=== PATIENT | male | born 1975 | race Caucasian/White ===

== ENCOUNTER 2020-05-12 10:32 | Outpatient (CLI) | payer OTHER, SELFPAY ==
--- NOTE | 2020-05-16 11:50 | P.NEURO_ITS ---
Neurology EEG Report General Information Date of Study: 05/12/20 TEST EEG DIAGNOSIS Parkinson's Disease CONDITION OF RECORDING Awake, drowsy and sleep EEG NUMBER [id number] CLINICAL HISTORY Patient reports, for about a year, he had noticed right arm and hand and sometimes right leg not responding/moving like should. EEG DESCRIPTION Basic resting occipital frequency consists of well defined 8-10hz per second alpha. During drowsiness low voltage beta activity is seen diffusely mixed with waxing and waning alpha activity. Bilateral symmetrical sleep activity is seen during sleep. Photic stimulation produced normal and symmetrical drive. N onparoxysmal. Nonfocal. Nonlaterlizing. Impression: No significant abnormalities noted.
== END 2020-05-12 10:33 | disposition home or self-care (01) ==
LOC: ANHNEURO 10:33
PROVIDERS: PCP Family Medicine; Visit Provider Psychiatry & Neurology Neurology
DX: G20 Parkinson's disease (principal)
CPT/HCPCS: 95816

== ENCOUNTER → 2020-05-12 12:03 | Outpatient (CLI) | payer OTHER, SELFPAY ==
--- NOTE | ~2020-05-12 | MR_ITS ---
EXAMINATION: MR brain/brain stem wo/w con DATE: 05/12/2020 14:40 INDICATION: Paresthesias of skin. TECHNIQUE: Magnetic resonance imaging (MRI) of the brain and brainstem was performed without and with 14 mL MultiHance intravenous contrast. Sequences included sagittal and axial T1-weighted FSE, axial diffusion-weighted FS EPI, axial T2*-weighted GRE, axial T2-weighted FLAIR Propeller, and axial T2-we ighted Propeller. Postcontrast sequences included axial and coronal T1-weighted FSE. Apparent diffusi on coefficient (ADC) maps were created. COMPARISON: None. FINDINGS: There are small old infarcts in right parietal lobe. There are scattered areas of nonspecif ic increased T2-weighted signal intensity in the cerebral white matter. There is no intracranial hemo rrhage, acute infarction, or abnormal intracranial mass lesion. The ventricles are normal in size. Th ere are mucous retention cysts in the maxillary sinuses. The orbits are normal. The mastoid air cells are normal. IMPRESSION: 1. 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 2. Mild nonspecific cerebral white matter disease, which likely represents chronic small vessel ische lambert disease. Reviewed, dictated and finalized at location A. IANCE ADJUSTER IMPRESSION: 1. 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 2. Mild nonspecific cerebral white matter disease, which likely represents cmm programmer abhijit small vessel ischemic disease.
--- NOTE | ~2020-05-12 | MR_ITS ---
EXAMINATION: MR cervical spine wo/w con DATE: 05/12/2020 14:39 INDICATION: Paresthesias of skin. TECHNIQUE: Magnetic resonance imaging (MRI) of the cervical spine was performed without and with 14 m L MultiHance intravenous contrast. Sequences included sagittal and axial T2-weighted FSE, sagittal ST IR FSE, and sagittal and axial T1-weighted FSE. Postcontrast sequences included sagittal and axial T1 -weighted FS FSE. COMPARISON: None FINDINGS: There is 4 degrees levocurvature of cervical spine. Vertebral body heights are normal. Inte rvertebral disc heights are normal. The spinal cord signal intensity is normal. The following disc le vels are specifically discussed: C2-C3: The disc does not extend beyond the endplate margin. There is no uncovertebral joint osteoarth ritis. There is no facet joint osteoarthritis. There is no neural foraminal stenosis. There is no miguelina tral canal stenosis. C3-C4: The disc does not extend beyond the endplate margin. There is mild left uncovertebral joint os teoarthritis. There is mild right facet joint osteoarthritis. There is mild left neural foraminal nic nosis. There is no central canal stenosis. C4-C5: The disc does not extend beyond the endplate margin. There is moderate left uncovertebral join t osteoarthritis. There is mild right facet joint osteoarthritis. There is mild left neural foraminal stenosis. There is no central canal stenosis. C5-C6: The disc is bulging. There is mild bilateral uncovertebral joint osteoarthritis. There is no f acet joint osteoarthritis. There is mild right neural foraminal stenosis. There is mild central canal stenosis. C6-C7: The disc does not extend beyond the endplate margin. There is no uncovertebral joint osteoarth ritis. There is no facet joint osteoarthritis. There is no neural foraminal stenosis. There is no miguelina tral canal stenosis. C7-T1: The disc does not extend beyond the endplate margin. There is no uncovertebral joint osteoarth ritis. There is no facet joint osteoarthritis. There is no neural foraminal stenosis. There is no miguelina tral canal stenosis. IMPRESSION: 1. Mild cervical spondylosis. Reviewed, dictated and finalized at location A. IFIED PHLEBOTOMIST
[2020-05-12 13:36] LABS: Estimated Glomerular Filt Rate > 60
== END ==
PROVIDERS: Visit Provider Psychiatry & Neurology Neurology
DX: M47.812 Spondylosis without myelopathy or radiculopathy, cervical region (principal); M48.02 Spinal stenosis, cervical region; Z86.73 Personal history of transient ischemic attack (TIA), and cerebral infarction without residual deficits
CPT/HCPCS: 70553; 72156; A9577

== ENCOUNTER 2020-07-19 09:09 | Outpatient (CLI) | payer OTHER, SELFPAY ==
--- NOTE | 2020-07-19 12:00 | NEURO_ITS ---
Impression: # Complains of slow movement on the right side with sfittness. # Normal nerve conduction study of lower extremities. # Normal needle/EMG exam; no myotonia or fasciculation. # Clinical correlation recommended.possibility of higher involvement likely. Nerve Conduction Studies Anti Sensory Summary Table Stim Site NR Peak (ms) P-T Amp (?V) Site1 Site2 Delta-P (ms) Dist (cm) Rocky (m/s) Left Sup Fibular Anti Sensory (Ant Lat Mall) 14 cm 3.3 13.1 14 cm Ant Lat Mall 3.3 16.0 48 Right Sup Fibular Anti Sensory (Ant Lat Mall) 14 cm 3.3 7.3 14 cm Ant Lat Mall 3.3 16.0 48 Left Sural Anti Sensory (Lat Mall) Calf 3.9 25.5 Calf Lat Mall 3.9 16.0 41 Right Sural Anti Sensory (Lat Mall) Calf 4.2 12.3 Calf Lat Mall 4.2 17.0 40 Motor Summary Table Stim Site NR Onset (ms) O-P Amp (mV) Site1 Site2 Delta-0 (ms) Dist (cm) Rocky (m/s) Left Peroneal Motor (Vastus Med) Ankle 5.0 1.8 Popit Ankle 8.3 39.0 47 Popit 13.3 2.6 Right Peroneal Motor (Vastus Med) Ankle 5.1 3.6 Popit Ankle 7.9 37.0 47 Popit 13.0 2.7 Left Tibial Motor (Abd Elmore Brev) Ankle 5.1 5.2 Knee Ankle 9.4 42.0 45 Knee 14.5 2.5 Right Tibial Motor (Abd Elmore Brev) Ankle 4.9 6.8 Knee Ankle 9.2 41.0 45 Knee 14.1 4.8 F Wave Studies NR F-Lat (ms) L-R F-Lat (ms) Left Peroneal (Mrkrs) (EDB) 50.67 1.05 Right Peroneal (Mrkrs) (EDB) 51.72 1.05 Left Tibial (Mrkrs) (Abd Hallucis) 52.19 0.07 Right Tibial (Mrkrs) (Abd Hallucis) 52.12 0.07 EMG Side Muscle Nerve Root Ins Act Fibs Amp Dur Recrt Comment Right AntTibialis Dp Br Fibular L4-5 Nml Nml Nml Nml Nml Right Gastroc Tibial S1-2 Nml Nml Nml Nml Nml Right Fibularis Long Sup Br Fibular L5-S1 Nml Nml Nml Nml Nml Right Flex Dig Long Tibial L5-S2 Nml Nml Nml Nml Nml Right Ext Dig Brev Dp Br Fibular L5, S1 Nml Nml Nml Nml Nml Left AntTibialis Dp Br Fibular L4-5 Nml Nml Nml Nml Nml Left Gastroc Tibial S1-2 Nml Nml Nml Nml Nml Left Fibularis Long Sup Br Fibular L5-S1 Nml Nml Nml Nml Nml Left Flex Dig Long Tibial L5-S2 Nml Nml Nml Nml Nml Left Ext Dig Brev Dp Br Fibular L5, S1 Nml Nml Nml Nml Nml MTDD
== END 2020-07-19 09:10 | disposition home or self-care (01) ==
PROVIDERS: PCP Family Medicine; Visit Provider Psychiatry & Neurology Neurology
DX: G62.9 Polyneuropathy, unspecified (principal)
CPT/HCPCS: 95886; 95910

== ENCOUNTER → 2020-07-21 08:34 | Outpatient (CLI) | payer OTHER, SELFPAY ==
--- NOTE | ~2020-07-21 | MR_ITS ---
EXAMINATION: MR shoulder RT wo con DATE: 07/21/2020 09:31 INDICATION: Right shoulder pain. TECHNIQUE: Magnetic resonance imaging (MRI) of the right shoulder was performed without intravenous c ontrast. Sequences included axial PD-weighted FS FSE, coronal oblique PD-weighted FS FSE and T2-weigh angel FS FSE, and sagittal oblique T2-weighted FS FSE and T1-weighted FSE. COMPARISON: None. FINDINGS: Coracoacromial arch: The acromion undersurface is curved in morphology (type II). Acromioclavicular joint is normal. There is mild subacromial/subdeltoid bursitis. Rotator cuff: There is severe supraspinatus tendinopathy and mild infraspinatus and teres minor tendinopathy. There is mild subscapularis tendinopathy. No tear. There is no asymmetric fatty atrophy of the rotator cuf f muscle bellies. Biceps tendon and glenoid labrum: Biceps tendon is in bicipital groove. Intra-articular biceps tendon is normal. The glenoid labrum is normal. Fluid: There is no glenohumeral joint effusion. Bones/cartilage: There is cartilage surface irregularity of humeral head and glenoid. IMPRESSION: 1. Severe rotator cuff tendinopathy. No tear. 2. Mild glenohumeral joint chondrosis. 3. Mild subacromial/subdeltoid bursitis. Reviewed, dictated and finalized at location A. O REPAIRER
== END ==
PROVIDERS: Visit Provider Psychiatry & Neurology Neurology
DX: R53.1 Weakness (principal); M75.51 Bursitis of right shoulder
CPT/HCPCS: 73221

== ENCOUNTER 2020-08-16 15:38 | Outpatient (CLI) | payer OTHER, SELFPAY ==
[2020-08-16 16:57] LABS: Basophils Percent Auto 0.6 % (0.2-1.2); Eosinophils Absolute Auto 0.1 K/mm3 (0-0.3); Eosinophils Percent Auto 2.2 % (0-4.4); Hematocrit 43.7 % (42.0-52.0); Hemoglobin 14.9 g/dL (14.0-18.0); Immature Granulocyte Absolute 0.02 K/mm3 (0.00-0.031); Immature Granulocyte Percent A 0.3 % (0-0.5); Lymphocytes Percent Auto 30.2 % (18.3-44.2); Mean Corpuscular HGB Conc 34.1 g/dl (32-36); Mean Corpuscular Hemoglobin 30.2 pg (26-34); Mean Corpuscular Volume 88.5 fl (80-100); Monocytes Absolute Auto 0.4 K/mm3 (0.1-0.6); Monocytes Percent Auto 5.6 % (2.6-8.5); Neutrophils Absolute Auto 3.9 K/mm3 (1.3-6.7); Neutrophils Percent Auto 61.1 % (45.5-73.1); Platelet Count Result 295 k/mm3 (150-375); Red Blood Count 4.94 M/mm3 (4.6-6.20); Red Cell Distribution Width 12.5 % (11.5-14.5); White Blood Count 6.3 K/mm3 (4.5-10.0)
[2020-08-16 17:00] LABS: Rheumatoid Factor < 8.6 IU/ML (<12)
[2020-08-16 17:02] LABS: CRP < 0.5 mg/dL (<1.0); Uric Acid 5.4 mg/dL (3.5-8.5)
[2020-08-16 17:30] LABS: Erythrocyte Sedimentation Rate 5 mm/hr (0-20)
== END 2020-08-16 15:39 | disposition home or self-care (01) ==
LOC: ANHLAB 15:39
PROVIDERS: PCP Family Medicine; Visit Provider Orthopaedic Surgery
DX: M17.0 Bilateral primary osteoarthritis of knee (principal); M06.9 Rheumatoid arthritis, unspecified
CPT/HCPCS: 36415; 84550; 85025; 85652; 86038; 86140; 86430

== ENCOUNTER 2020-09-20 16:45 | Outpatient (RCR) | payer OTHER, SELFPAY ==
--- NOTE | 2020-08-23 18:06 | PTOPEVAL ---
PHYSICAL THERAPY EVALUATION Thank you for referring Ronnie Driscoll to [facility].? The patient was evaluated for the dx of right RTC tendonitis. The patient is scheduled to be seen for therapy? 2 x/week for 4 weeks. Please review, sign, date and return this plan of care TOMMY. I agree with and certify that the following plan of care is medically necessary. Referring Physician Date Attending Provider: Titi Perez MD *PT Outpatient Evaluation Start: 08/23/20 07:26 Freq: Status: Active Protocol: Document 08/23/20 16:44 MLV (Rec: 08/23/20 17:50 MLV [email or web address]) Assessment Status Evaluation Evaluation Information Problem Diagnosis right RTC tendonitis Onset 1 year ago Cause no injury Additional Evaluation Detail Patient having pain at right shoulder about 1 year ago. The patient is also seeing a neurologist due to onset of possible Parkinsons at the same time. The patient a cortisone shot which gave some relief. The patient has pain with certain motions- especially reaching behind his back. 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 Patient denies left shoulder problems. Patient is right hand dominant. Subjective Information Patient has 3 kids but none Query Text:As Reported By Patient/ require being carried. The Family patient's goal is to be free of pain with reaching/lifting and sleeping. Diagnostic Tests X-Rays For This Problem Yes: normal Pain Assessment Timing of Pain Assessment Timing of Pain Assessment Assessment Pain Scale Pain Scale Used Numeric (1 - 10) Self Report Pain Assessment Right Shoulder(s) Reported Pain Level 0 Pain Frequency Acute Other Pain Description 3 with reach behind back Greatest Pain Intensity 6 Pain Aggravating Factors Lifting Other Pain Aggravating Factors reaching Pain Score Pain Score 0: Self Report Interventions Used Interventions Used By Clinicians Education Pain Relief Interventions Used By Inactivity/Rest,Position Patient Change Upper Extremity Range of Motion General Upper Extremity Range of Motion Reason Not Measured WFL/Left,WFL/Right Gross Upper Extr
--- NOTE | 2020-09-18 18:08 | PCPTNOTE ---
Billing charge error for documentation with treatment date 09/11/20 @ 16:35. Therapist charged 2units under functional education which document should reflect 2units under manual therapy with 25minutes of treatment under that unit.
--- NOTE | 2020-09-20 17:34 | PTOPEVAL ---
PHYSICAL THERAPY DISCHARGE Thank you for referring Ronnie Driscoll to [facility].? The patient has been seen for therapy?9 visits for the dx of right shoulder tendonitis. Goals are met. DC PT. Please review, sign, date and return this plan of care TOMMY. I agree with and certify the following plan of care. Referring Physician Date Admitting Provider: Attending Provider: Titi Perez MD Referring Provider: Titi Perez MD *PT Outpatient Discharge Start: 08/23/20 07:26 Freq: Status: Active Protocol: Document 09/20/20 16:51 MLV (Rec: 09/20/20 17:34 MLV [email or web address]) Assessment Status Discharge Evaluation Information Problem Diagnosis right RTC tendonitis Onset 1 year ago Cause no injury Additional Evaluation Detail Patient reports right shoulder pain and use of arm is much improved. The patient is compliant with HEP and plans to continue exercises on own at home. Patient is to see MD on 09/27 for a follow up. Pain Assessment Timing of Pain Assessment Timing of Pain Assessment Assessment Pain Scale Pain Scale Used Numeric (1 - 10) Self Report Pain Assessment Right Shoulder(s) Reported Pain Level 0 Pain Frequency Acute Other Pain Description reaching behind his back Greatest Pain Intensity 5 Pain Behaviors None Pain Score Pain Score 0: Self Report Upper Extremity Range of Motion General Upper Extremity Range of Motion Reason Not Measured WFL/Left,WFL/Right Gross Upper Extremity Range of Motion reach behind back to T7 on Comments left, and T7 on right arm Upper Extremity Muscle Strength Testing General Upper Extremity Strength Reason Not Measured WNL/Left,WNL/Right Gross Upper Extremity Strength Comments scapular strength improved to 3+/5 to 4-/5 Palpation Assessment Palpation Palpation decreased radha scapular winging PT Clinical Summary Mr. Driscoll has completed 9 visits for right shoulder pain, tightness, postural imbalance and goals have been met. The patient is I to continue with HEP and heat at home and has a follow up with the MD soon. DC PT at this time-no further skilled PT needs.
== END 2020-09-21 10:20 | disposition home or self-care (01) ==
LOC: ANHPT 16:45
PROVIDERS: PCP Family Medicine; Referring Provider Orthopaedic Surgery; Visit Provider Orthopaedic Surgery
DX: M75.41 Impingement syndrome of right shoulder (principal)
CPT/HCPCS: 97014; 97110; 97140; 97161; 97530; G0283

== ENCOUNTER 2020-09-27 16:29 | Outpatient (CLI) | payer OTHER, SELFPAY ==
--- NOTE | ~2020-09-27 | US_ITS ---
EXAMINATION: US venous doppler UE RT EXAM DATE: 09/27/2020 17:05 INDICATION: Right upper extremity swelling. TECHNIQUE: Multiple grayscale, color flow, Doppler sonographic images of the right upper extremity ve ins obtained by technologist. Compression was performed where able. There is no prior study for cathy ayala. FINDINGS: Right upper extremity: Jugular vein: ------------> Normal. Subclavian vein: --------> Normal. Axillary vein:------------> Normal. Brachial vein:-----------> Normal. Basilic vein: ------------> Normal. Cephalic vein: ----------> Normal. Radial vein: ------------> Normal. Ulnar vein: > Normal. IMPRESSION: No deep venous thrombosis of the right upper extremity. Reviewed, dictated and finalized at location A.
== END 2020-09-27 16:30 | disposition home or self-care (01) ==
PROVIDERS: PCP Family Medicine; Visit Provider Orthopaedic Surgery
DX: M79.89 Other specified soft tissue disorders (principal)
CPT/HCPCS: 93971

== ENCOUNTER 2023-12-31 15:16 | Outpatient (CLI) | payer BC, SELFPAY ==
[2023-12-31 15:35] LABS: Basophils Absolute Auto 0.1 K/mm3 (0.0-0.1); Basophils Percent Auto 0.8 % (0.2-1.2); Eosinophils Absolute Auto 0.2 K/mm3 (0-0.3); Eosinophils Percent Auto 2.9 % (0-4.4); Hematocrit 36.5 % (42.0-52.0); Hemoglobin 10.9 g/dL (14.0-18.0); Immature Granulocyte Absolute 0.01 K/mm3 (0.00-0.031); Immature Granulocyte Percent A 0.2 % (0-0.5); Lymphocytes Absolute Auto 1.86 K/mm3 (0.9-3.2); Lymphocytes Percent Auto 30.1 % (18.3-44.2); Mean Corpuscular HGB Conc 29.9 g/dl (32-36); Mean Corpuscular Hemoglobin 22.8 pg (26-34); Mean Corpuscular Volume 76.2 fl (80-100); Mean Platelet Volume 8.4 fl (7.4-10.4); Monocytes Absolute Auto 0.4 K/mm3 (0.1-0.6); Monocytes Percent Auto 6.6 % (2.6-8.5); Neutrophils Absolute Auto 3.7 K/mm3 (1.3-6.7); Neutrophils Percent Auto 59.4 % (45.5-73.1); Platelet Count Result 304 k/mm3 (150-375); Red Blood Count 4.79 M/mm3 (4.6-6.20); Red Cell Distribution Width 16.1 % (11.5-14.5); White Blood Count 6.2 K/mm3 (4.5-10.0)
[2023-12-31 15:40] LABS: Platelet Estimate Adequate (Adequate); Schistocytes None Seen
[2023-12-31 15:41] LABS: Anisocytosis 1+; Hypochromasia 1+; Microcytosis 1+ (NORMAL)
[2023-12-31 15:42] LABS: Ovalocytes 1+; Poikilocytosis 1+
[2023-12-31 16:38] LABS: Iron 27 ug/dL (49-181)
[2023-12-31 16:38] LABS: Alanine Aminotransferase 18 U/L (6-50); Albumin Level 4.9 g/dL (3.5-5.1); Alkaline Phosphatase 99 U/L (38-126); Anion Gap 10 mmol/L (4-12); Aspartate Amino Transferase 27 U/L (17-59); Bilirubin,Total 1.8 mg/dL (0.2-1.3); Blood Urea Nitrogen 16 mg/dL (9-20); Carbon Dioxide 26 mmol/L (22-30); Chloride 104 mmol/L (98-107); Estimated Glomerular Filt Rate > 60; Glucose 102 mg/dL (65-110); Lactate Dehydrogenase 213 U/L (120-246); Potassium 4.3 mmol/L (3.4-5.0); Sodium 140 mmol/L (137-145)
[2023-12-31 16:48] LABS: Percent Iron Saturation 6 % (20-50)
[2023-12-31 17:14] LABS: Ferritin 5.17 ng/mL (17.9-464)
[2023-12-31 17:44] LABS: Folic Acid 10.8 ng/mL (2.76->20)
[2024-01-04 04:19] LABS: Methylmalonic Acid 124 nmol/L (55-335)
[2024-01-05 12:24] LABS: Soluble Transferrin Receptor 2.77 mg/L (0.76-1.76)
== END 2023-12-31 15:17 | disposition home or self-care (01) ==
LOC: ANHLAB 15:20
PROVIDERS: Nurse Practitioner Family; PCP Family Medicine; Visit Provider Internal Medicine Hematology & Oncology
DX: D50.9 Iron deficiency anemia, unspecified (principal)
CPT/HCPCS: 36415; 80053; 82607; 82728; 82746; 83540; 83550; 83615; 83921; 84238; 85025

== ENCOUNTER 2024-06-03 21:13 | Observation (INO) | payer BC, SELFPAY ==
[2024-06-03] VITALS (7 sets, daily range): BP systolic 129–140; BP diastolic 81–91; PULSE 94–106; RESP 20–26; TEMP 36.8; O2SAT 94–98
--- NOTE | ~2024-06-03 | CT_ITS ---
EXAMINATION: CT abdomen pelvis w con DATE: 06/03/2024 22:18 INDICATION: Right lower quadrant tenderness, suprapubic pain. TECHNIQUE: Computed tomography (CT) of the abdomen and pelvis was performed with 100 CC Omnipaque 350 intravenous contrast. Automated exposure control and iterative reconstruction technique were employe d. Exam dose: 569.42 mGy-cm total exam DLP. COMPARISON: None. FINDINGS: There is mild bilateral dependent lower lobe atelectasis. The lungs are otherwise clear. Normal heart size. No pericardial or pleural effusion. The liver, spleen, pancreas, gallbladder, bile ducts and pancreatic duct are unremarkable. Normal morphology of the adrenal glands. No renal mass lesion or urinary tract calculus or hydroureteronephrosis. Small sliding hiatal hernia. There is a probably dilated abnormal appendix with evidence of perforation and surrounding inflammati on. The appendix measures up to 2.5 cm diameter. Mucocele should be considered. There is associated probable adynamic ileus with air-fluid levels in the small bowel. No bowel obstru ction is evident. No intraperitoneal free air is detected. Normal caliber of the abdominal aorta. No intraperitoneal or retroperitoneal or pelvic mass lesion or adenopathy. There is minimal free fluid in the right paracolic gutter in the region of the inferior tip of the right hepatic lobe. Bilateral fat-containing inguinal hernias, larger on the right. Fat-containing umbilical hernia. Included skeletal structures are unremarkable. IMPRESSION: Probably enlarged appendix measuring up to 2.5 cm diameter, with evidence of perforation ; appendiceal mucocele should be considered Probable associated mild adynamic ileus, with small bowel air-fluid levels Small sliding hiatal hernia Bilateral fat-containing inguinal hernias, right greater than left Fat-containing umbilical hernia. Reviewed, dictated and finalized at Location A. Reviewed, dictated and finalized at location A. E LOADER IMPRESSION: Probably enlarged appendix measuring up to 2.5 cm diameter, with e vidence of perforation; appendiceal mucocele should be considered Probable associated mild adynamic ileus, with small bowel air-fluid levels Small sliding hiatal hernia Bilateral fat-containing inguinal hernias, right greater than left Fat-containing umbilical hernia.
[2024-06-03 21:34] LABS: Basophils Percent Auto 0.4 % (0.2-1.2); Eosinophils Absolute Auto 0.1 K/mm3 (0-0.3); Eosinophils Percent Auto 0.9 % (0-4.4); Hematocrit 42.8 % (42.0-52.0); Hemoglobin 14.5 g/dL (14.0-18.0); Immature Granulocyte Absolute 0.01 K/mm3 (0.00-0.031); Immature Granulocyte Percent A 0.1 % (0-0.5); Lymphocytes Absolute Auto 1.01 K/mm3 (0.9-3.2); Lymphocytes Percent Auto 10.5 % (18.3-44.2); Mean Corpuscular HGB Conc 33.9 g/dl (32-36); Mean Corpuscular Hemoglobin 29.7 pg (26-34); Mean Corpuscular Volume 87.7 fl (80-100); Mean Platelet Volume 9.4 fl (7.4-10.4); Monocytes Absolute Auto 0.6 K/mm3 (0.1-0.6); Monocytes Percent Auto 5.9 % (2.6-8.5); Neutrophils Absolute Auto 7.9 K/mm3 (1.3-6.7); Neutrophils Percent Auto 82.2 % (45.5-73.1); Platelet Count Result 294 k/mm3 (150-375); Red Blood Count 4.88 M/mm3 (4.6-6.20); Red Cell Distribution Width 12.8 % (11.5-14.5); White Blood Count 9.7 K/mm3 (4.5-10.0)
--- NOTE | 2024-06-03 21:40 | ED.ABDPAIN ---
HPI - Abdominal Pain General Chief Complaint: Abdominal Pain Stated Complaint: bladder pain radiates to abdomen and left back Time Seen by Provider: 06/03/24 21:18 Source: patient Mode of arrival: ambulatory Limitations: no limitations History of Present Illness HPI narrative: This is a 49-year-old male who presents to the ED with chief complaint of lower abdominal pain x1 day. Reports it radiates on occasion to the left side. He has known history of Crohn's but has been in remission for quite some time. Reports that he has had hernias in the past but thinks his pain today may be more due to the bladder. Denies urinary symptoms. Endorses a little bit of nausea and vomiting but no diarrhea or or GI bleeding symptoms. Denies fevers, chills, chest pain, shortness of breath, back pain Related Data Home Medications Medication Instructions Recorded Confirmed cholecalciferol (vitamin D3) 125 5,000 unit PO DAILY 05/18/19 05/24/24 mcg (5,000 unit) capsule baclofen 10 mg tablet 10 mg PO QHS 06/03/23 05/24/24 bupropion HCl 100 mg tablet 100 mg PO BID 06/03/23 05/24/24 mirtazapine 15 mg tablet 15 mg PO DAILY 05/24/24 05/24/24 Allergies Allergy/AdvReac Type Severity Reaction Status Date / Time tramadol Allergy Unknown Jittery Verified 05/24/24 15:43 Review of Systems Review of Systems: All systems as dictated in HPI PENDING SALE TO [facility] Past Medical History Medical History Anxiety Crohn disease GERD (gastroesophageal reflux disease) History of endocarditis HTN (hypertension), benign PVCs (premature ventricular contractions) Surgical History Surgical History H/O inguinal hernia repair H/O mitral valve repair Family History Family History Grandparent Heart disease Social History Social History Smoking status: Never smoker Second hand tobacco smoke exposure: Yes Alcohol intake: current Alcohol use details: social drinker Substance use: never Substance use type: does not use Living arrangements: with family Occupation/Education: occupation 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 HEAD: Normocephalic, atraumatic. EYES: PERRLA and EOMI. ENT: Nares clear, no rhinorrhea or epistaxis. Mucous membranes moist. Oropharynx without tonsillar hypertrophy exudate or other lesions. NECK: Supple. No adenopathy or masses. CHEST: No respiratory distress. Clear to auscultation. No wheezes rales or rhonchi HEART: Regular rate and rhythm. No murmur heard. Normal peripheral pulses. ABDOMEN: Tenderness to the right lower quadrant and suprapubic abdomen. Soft, otherwise nontender, nondistended, normal active bowel sounds. MSK: Normal range of motion. No edema. SKIN: Warm, dry, no rash. NEURO: Alert and oriented x4. No focal deficits. PSYCH: Normal mood and affect. Course Vital Signs Vital signs: Vital Signs Temperature 98.2 F 06/03/24 21:18 Pulse Rate 106 H 06/03/24 21:18 Respiratory Rate 24 H 06/03/24 21:18 Blood Pressure 140/91 H 06/03/24 21:18 Pulse Oximetry 96 06/03/24 21:18 Oxygen Delivery Room Air 06/03/24 21:18 Temperature 98.2 F 06/03/24 21:18 Pulse Rate 95 06/03/24 22:31 Respiratory Rate 26 H 06/03/24 22:31 Blood Pressure 129/81 06/03/24 22:31 Pulse Oximetry 98 06/03/24 22:31 Oxygen Delivery Room Air 06/03/24 21:18 MDM - Abdominal Pain MDM Narrative Medical decision making narrative: This is a 49-year-old male who presents to the ED for chief complaint of abdominal pain. Vitals initially showing tachycardia, elevated blood pressure but otherwise no fever. Exam shows localized right lower quadrant tenderness. Lab work showing normal white count on CBC and normal hemoglobin. CMP remarkable for slightly elevated bilirubin of 2.3 but liver enzymes are normal. Urinalysis showing high specific gravity but no infection. Received a call from the stat read radiologist indicating that the patient likely has acute early perforated appendicitis. The read is showing a 2.5 cm dilated appendix with no abscess. Patient was started on Zosyn. Surgery was consulted and recommends admission to hospitalist. Dr. Leavitt (Hospitalist) has agreed to admit the patient. Lab Data 06/03/24 21:27 06/03/24 21:27 Labs: Lab Results 06/03/24 Range/Units 21:27 WBC 9.7 (4.5-10.0) K/mm3 RBC 4.88 (4.6-6.20) M/mm3 Hgb 14.5 D (14.0-18.0) g/dL Hct 42.8 (42.0-52.0) % MCV 87.7 (80-100) fl MCH 29.7 (26-34) pg MCHC 33.9 (32-36) g/dl RDW 12.8 (11.5-14.5) % Plt Count 294 (150-375) k/mm3 MPV 9.4 (7.4-10.4) fl Immature Gran % (Auto) 0.1 (0-0.5) % Neut % (Auto) 82.2 H (45.5-73.1) % Lymph % (Auto) 10.5 L (18.3-44.2) % [place] % (Auto) 5.9 (2.6-8.5) % Eos % (Auto) 0.9 (0-4.4) % Baso % (Auto) 0.4 (0.2-1.2) % Lymph # (Auto) 1.01 (0.9-3.2) K/mm3 [place] # (Auto) 0.6 (0.1-0.6) K/mm3 Eos # (Auto) 0.1 (0-0.3) K/mm3 Baso # (Auto) 0.0 (0.0-0.1) K/mm3 Abs Immat Gran (auto) 0.01 (0.00-0.031) K/mm3 Absolute Neuts (auto) 7.9 H (1.3-6.7) K/mm3 Absolute Nucleated RBC 0.000 (0.0-0.012) K/mm3 Nucleated RBC % 0.0 (0.0-0.2) % Sodium 140 (137-145) mmol/L Potassium 4.0 (3.4-5.0) mmol/L Chloride 103 (98-107) mmol/L Carbon Dioxide 29 (22-30) mmol/L Anion Gap 8 (4-12) mmol/L BUN 15 (9-20) mg/dL Creatinine 0.80 (0.7-1.3) mg/dL Estim Creat Clear Calc 92 ml/min Estimated GFR > 60 (59 - ) Glucose 127 H (65-110) mg/dL Calcium 9.0 (8.4-10.2) mg/dL Total Bilirubin 2.3 H (0.2-1.3) mg/dL AST 26 (17-59) U/L ALT 11 (6-50) U/L Alkaline Phosphatase 99 (38-126) U/L Total Protein 8.0 (6.3-8.2) g/dL Albumin 4.6 (3.5-5.1) g/dL Lipase 96 (23-300) U/L Urine Color Yellow (Yellow) Urine Appearance Clear (Clear) Urine pH 6.0 (5.0-9.0) Ur Specific [place] > 1.045 H (1.001-1.035) Urine Protein Negative (Negative) mg/dL Urine Glucose (UA) Negative (Negative) mg/dL Urine Ketones Negative (Negative) mg/dL Ur Blood (Man) Negative (Negative) Urine Nitrate Negative (Negative) Urine Bilirubin Negative (Negative) Urine Urobilinogen 0.2 (<2.0) mg/dL Leukocyte Esterase Rfl Negative (Negative) DHIRAJ/UL Discharge Plan Discharge Clinical Impression: Acute appendicitis Qualifiers: Appendicitis perforation presence: with perforation Appendicitis abscess presence: without abscess Patient Disposition: Still a Patient Condition: Stable Instructions: Antibiotic Form Prescriptions: No Action bupropion HCl 100 mg tablet 100 mg PO BID baclofen 10 mg tablet 10 mg PO QHS mirtazapine 15 mg tablet 15 mg PO DAILY carvedilol 12.5 mg tablet 12.5 mg PO Q12H Qty: 60 5RF cholecalciferol (vitamin D3) 5,000 unit capsule 5,000 unit PO DAILY carbidopa-levodopa 25-100 mg tablet 2 tablet PO TID Qty: 540 2RF lisinopril 10 mg tablet See Rx Instructions .ROUTE .COMPLEX Qty: 90 2RF Dose Instruction: Take 1 tablet by mouth once daily Rx Instructions: Take 1 tablet by mouth once daily omeprazole 40 mg capsule,delayed release(DR/EC) 40 mg PO DAILY Qty: 90 1RF atorvastatin 40 mg tablet 40 mg PO DAILY Qty: 30 5RF Follow-up/Referrals: Ronnie Rapp MD [Primary Care Provider] -
[2024-06-03 21:51] LABS: Alanine Aminotransferase 11 U/L (6-50); Albumin Level 4.6 g/dL (3.5-5.1); Alkaline Phosphatase 99 U/L (38-126); Anion Gap 8 mmol/L (4-12); Aspartate Amino Transferase 26 U/L (17-59); Bilirubin,Total 2.3 mg/dL (0.2-1.3); Blood Urea Nitrogen 15 mg/dL (9-20); Carbon Dioxide 29 mmol/L (22-30); Chloride 103 mmol/L (98-107); Estimated CRCL calculation 92 ml/min; Estimated Glomerular Filt Rate > 60; Glucose 127 mg/dL (65-110); Lipase 96 U/L (23-300); Sodium 140 mmol/L (137-145)
[2024-06-03] MEDS: MORPHINE SULFATE (*CRX) 4 MG/ML INJ IV PUSH (21:52)
[2024-06-03] MEDS: SODIUM CHLORIDE 0.9% IV 1,000 ML 999 ML IV CONT (21:52)
[2024-06-03] MEDS: ONDANSETRON INJ 4 MG/2 ML VIAL IV PUSH (21:53)
[2024-06-03 23:53] LABS: Add Urine Microscopic? NO; Appearance Urine Clear (Clear); Bilirubin Urine Negative (Negative); Blood Urine Negative (Negative); Color Urine Yellow (Yellow); Glucose Urine UA Negative (Negative); Ketones Urine Negative (Negative); Leukocyte Esterase Ur Negative LEU/UL (Negative); Nitrate Urine Negative (Negative); Protein Urine Negative (Negative); Specific Grav Ur > 1.045 (1.001-1.035); Urobilinogen Urine 0.2 mg/dL (<2.0)
[2024-06-04] VITALS (16 sets, daily range): BP systolic 106–131; BP diastolic 61–86; PULSE 69–103; RESP 12–20; TEMP 36.3–36.9; O2SAT 94–100; BMI 27.8
[2024-06-04] MEDS: HYDROmorphone HCL INJ (*CRX) 1 MG/ML SYR 0.5 MG IV PUSH (00:14)
[2024-06-04] MEDS: PIPERACILLN/TAZ 3.375GM/NS50ML 3.375 GM/50 ML BAG IVPB ×4 (00:15→17:33)
[2024-06-04] MEDS: SODIUM CHLORIDE 0.9% IV 1,000 ML 125 ML IV CONT ×2 (02:20→17:32)
--- NOTE | 2024-06-04 02:21 | ADMGEN ---
This patient, Ronnie Driscoll, was admitted to Medical Room 343-01. Patient/family oriented to hospital policies and general routines including ID bracelet, bed and alarms, visiting hours, pain management, procedures, bathroom and other care routines, personal items, smoking policy, room service/diet, and visiting hours. Information on how to activate the Rapid Response Team has been discussed. Patient/Family are encouraged to report perceived risks to care and to ask questions if they do not understand what they are told or what they should do.
--- NOTE | 2024-06-04 02:22 | PM.IMHP ---
H&P: HPI History of Present Illness Date/Time: 06/04/24 02:22 Chief Complaint: ?Bladder pain? 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 The patient reported that on the he began having lower abdominal pain that was sharp stabbing and constant in nature. Initially the patient reports the pain was relieved with rest but as time progressed became sharper and more intense. Pain was 9/10 in intensity. He was having some associated chills and hot flashes. He did not check a temperature. He was feeling nauseous and did have 1 episode of vomiting. He denies any hematemesis or coffee-ground emesis. His last bowel movement was yesterday and was normally formed. He denies any dysuria changes in urinary frequency or hematuria. His states that the patient does not drink much in the way of fluids. The patient has not had any recent changes in his home medications. His pain worsened after he received morphine in the ER but improved after he received half a mg of Dilaudid. He reports that his pain is minimal now. Patient does have some involuntary guarding of the right lower quadrant but has normal bowel sounds. CT of the abdomen pelvis demonstrated acute appendicitis with possible early perforation. No obvious abscess or pneumoperitoneum. Patient was afebrile on presentation to the ER. He was initially tachycardic but this improved after he received 1 L fluid bolus. Patient was started on empiric antibiotic therapy with Zosyn. General surgery was consulted from the ER ask that the patient be admitted to hospitalist service. The patient reports he last took his home medications around 19:00. Review of Systems Review of Systems: 12 systems were reviewed with pertinent positives and negatives per HPI. Except as documented in the HPI, all other systems were reviewed and are negative. [facility], [facility] Past Medical History Medical History (Updated 06/04/24 @ 07:08 by Beatriz Leavitt DO) Anxiety Crohn disease In remission for several years Depression GERD (gastroesophageal reflux disease) History of CVA (cerebrovascular accident) Incidentally noted on MRI that was performed for Parkinson's with in the right parietal region History of endocarditis (~2010) HTN (hypertension), benign Iron deficiency anemia Resolved after iron infusions December 2023. Iron deficiency anemia thought to be due to gastric polyps and transverse colon tumor Parkinson disease (2019) PVCs (premature ventricular contractions) Tendinopathy of right rotator cuff Surgical History Surgical History (Updated 06/04/24 @ 02:36 by Beatriz Leavitt DO) H/O inguinal hernia repair (~1998) Left History of colonoscopy with polypectomy (03/2024) Patient had large colon mass of the transverse colon which was removed during colonoscopy in March pathology demonstrated benign findings History of esophagogastroduodenoscopy (EGD) (03/2024) Demonstrating multiple gastric polyps Status post mitral valve annuloplasty Patient developed mitral valve regurgitation after bacterial endocarditis and had mitral valve annuloplasty 2010 FR Family History Family History Grandparent Heart disease Social History Social History (Updated 06/04/24 @ 02:38 by Beatriz Leavitt DO) Social History: Patient lives with his of 13 years. They have 3 sons. 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 He rarely drinks alcohol. He is a lifelong nonsmoker and does not use any illicit substances. Code status: Full code Surrogate decision maker: Barbara () Smoking status: Never smoker Second hand tobacco smoke exposure: Yes Alcohol intake: current Alcohol use details: He rarely drinks alcohol about once every few months. 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 Gender identity (if verbalized by the patient): Male Spiritual care concerns: No Meds Home Medications and Allergies Home Medications Medication Instructions Recorded Confirmed Type cholecalciferol (vitamin D3) 125 5,000 unit PO DAILY 05/18/19 06/04/24 History mcg (5,000 unit) capsule carbidopa 25 mg-levodopa 100 mg 2 tablet PO TID #540 tabs 04/09/22 06/04/24 Rx tablet baclofen 10 mg tablet 10 mg PO BID 06/03/23 06/04/24 History bupropion HCl 100 mg tablet 100 mg PO DAILY 06/03/23 06/04/24 History omeprazole 40 mg capsule,delayed 40 mg PO DAILY #90 caps 02/20/24 06/04/24 Rx release atorvastatin 40 mg tablet 40 mg PO DAILY #30 tabs 03/09/24 06/04/24 Rx carvedilol 12.5 mg tablet 12.5 mg PO Q12H #60 tabs 05/24/24 06/04/24 Rx mirtazapine 15 mg tablet 15 mg PO HS 05/24/24 06/04/24 History carbidopa 25 mg tablet 25 mg PO TID 06/04/24 06/04/24 History carbidopa ER 50 mg-levodopa 200 mg 50 - 200 tablet PO HS 06/04/24 06/04/24 History tablet,extended release lisinopril 10 mg tablet 10 mg PO HS 06/04/24 06/04/24 History Allergies Allergy/AdvReac Type Severity Reaction Status Date / Time tramadol Allergy Unknown Jittery Verified 06/04/24 02:31 Vital Signs Vital Signs - 24 hr 06/03/24 21:18 06/03/24 21:54 06/03/24 22:00 Temperature 98.2 F Pulse Rate 106 H 103 H 104 H Respiratory Rate 24 H 26 H 26 H Blood Pressure 140/91 H Pulse Oximetry 96 97 94 Oxygen Delivery Room Air 06/03/24 22:24 06/03/24 22:25 06/03/24 22:30 Temperature Pulse Rate 97 98 94 Respiratory Rate 23 H 20 25 H Blood Pressure 130/82 Pulse Oximetry 98 97 98 Oxygen Delivery 06/03/24 22:31 06/04/24 01:33 Temperature Pulse Rate 95 98 Respiratory Rate 26 H 15 Blood Pressure 129/81 120/86 Pulse Oximetry 98 95 Oxygen Delivery Exam Narrative: Weight 80.5 kg BMI 27.8 Const: Other: No acute distress, well-developed well-nourished, appears stated age HENMT: Other: Mucous membranes are tacky, no oral pharyngeal erythema, crowded posterior oropharynx Eyes: Other: Pupils are equal and reactive, no scleral icterus, no conjunctival pallor Neck: Other: No JVD, no lymphadenopathy, normal neck circumference Resp: Other: Clear to auscultation bilaterally, no increased work of breathing Cardio: Other: Regular rate, regular rhythm, 2+ bilateral radial pedal pulses GI: Other: Localized peritoneal side right lower quadrant with involuntary guarding and rebound, normoactive bowel sounds, slightly distended, no tympany Skin: Other: No jaundice, mild pallor, normal temperature to touch Neuro: Other: Pill rolling tremor of extremities, masked faces, slow to respond, no facial asymmetry no gross motor deficits noted on limited exam Extrem: Other: No clubbing, no cyanosis, trace edema to hands and feet bilaterally Psych: Other: Appropriate mood and affect, pleasant and cooperative, judgment and insight intact H&P: Results Labs Labs: Laboratory Tests 06/03/24 21:27 06/03/24 21:27 06/03/24 21:27 WBC 9.7 RBC 4.88 Hgb 14.5 D Hct 42.8 MCV 87.7 MCH 29.7 MCHC 33.9 RDW 12.8 Plt Count 294 MPV 9.4 Immature Gran % (Auto) 0.1 Neut % (Auto) 82.2 H Lymph % (Auto) 10.5 L [place] % (Auto) 5.9 Eos % (Auto) 0.9 Baso % (Auto) 0.4 Lymph # (Auto) 1.01 [place] # (Auto) 0.6 Eos # (Auto) 0.1 Baso # (Auto) 0.0 Abs Immat Gran (auto) 0.01 Absolute Neuts (auto) 7.9 H Absolute Nucleated RBC 0.000 Nucleated RBC % 0.0 Sodium 140 Potassium 4.0 Chloride 103 Carbon Dioxide 29 Anion Gap 8 BUN 15 Creatinine 0.80 Estim Creat Clear Calc 92 Estimated GFR > 60 Glucose 127 H Calcium 9.0 Total Bilirubin 2.3 H AST 26 ALT 11 Alkaline Phosphatase 99 Total Protein 8.0 Albumin 4.6 Lipase 96 Urine Color Yellow Urine Appearance Clear Urine pH 6.0 Ur Specific [place] > 1.045 H Urine Protein Negative Urine Glucose (UA) Negative Urine Ketones Negative Ur Blood (Man) Negative Urine Nitrate Negative Urine Bilirubin Negative Urine Urobilinogen 0.2 Leukocyte Esterase Rfl Negative Stat read interpretation CT abdomen pelvis with contrast demonstrated acute appendicitis with possible microperforation. Official radiologic interpretation pending. CT personally reviewed. Defer to radiology interpretation Assessment and Plan Assessment and plan (1) Acute appendicitis: Qualifiers: Acute appendicitis type: with localized peritonitis Appendicitis abscess presence: unspecified whether abscess present Appendicitis gangrene presence: without gangrene Appendicitis perforation presence: with perforation Qualified Code(s): K35.32 - Acute appendicitis with perforation, localized peritonitis, and gangrene, without abscess Code(s): K35.80 - Unspecified acute appendicitis Status: Acute (2) Chronic GERD: Code(s): K21.9 - Gastro-esophageal reflux disease without esophagitis Status: Acute (3) Crohn's disease without complication: Qualifiers: Gastrointestinal tract location: unspecified location Qualified Code(s): K50.90 - Crohn's disease, unspecified, without complications Code(s): K50.90 - Crohn's disease, unspecified, without complications Status: Acute (4) Parkinson disease: Onset Date: 2019 Qualifiers: Dyskinesia presence: with dyskinesia Fluctuating manifestations: unspecified whether manifestations fluctuate Qualified Code(s): G20.B1 - Parkinson's disease with dyskinesia, without mention of fluctuations Code(s): G20 - Parkinson's disease Status: Acute Plan Patient has acute appendicitis with localized peritoneal signs and possible macro perforation. General surgery has been consulted. Patient been placed on empiric antibiotic therapy with Zosyn. Will continue IV fluid hydration. Patient is NPO for likely impending surgical procedure. Pain medications and nausea medications have been provided. Patient has Crohn's disease is in remission. Does not need active treatment. Patient's home Sinemet and baclofen her own hold due to NPO status. Will switch the patient's oral PPI to IV Protonix. Patient has had prior mitral valve annuloplasty assess no obvious murmur he appears euvolemic. Will resume antihypertensive medications when clinically appropriate. Quality VTE Prophylaxis VTE prophylaxis: mechanical ordered (SCDs)
--- NOTE | 2024-06-04 07:50 | PC.NURSE ---
To pre-op per bed, IV saline locked. Report given and questions answered.
--- NOTE | 2024-06-04 07:51 | WPDCN ---
Assessment and Plan Assessment and plan (1) Acute appendicitis: Qualifiers: Acute appendicitis type: with localized peritonitis Appendicitis abscess presence: unspecified whether abscess present Appendicitis gangrene presence: without gangrene Appendicitis perforation presence: with perforation Qualified Code(s): K35.32 - Acute appendicitis with perforation, localized peritonitis, and gangrene, without abscess Code(s): K35.80 - Unspecified acute appendicitis Status: Acute Assessment and Plan: Patient appears to have acute appendicitis. He has been started on IV antibiotics. Kept NPO. Discussed with him surgical management with a laparoscopic appendectomy. He wishes to proceed with surgery. Risks, benefits, indications, and expected outcomes were discussed in detail with the patient and/or family. They understand and I have answered all other questions. They wished to proceed with surgery as outlined above. HPI Data of Consult Date/Time: 06/04/24 07:51 Requesting Physician: Beatriz Leavitt DO Primary Care Provider: Ronnie Rapp MD Consult Narrative Reason for consult: Right lower quadrant abdominal pain, acute appendicitis Narrative: Ronnie Driscoll is a 49 year old male who presents to the emergency room with a 24hour history of worsening lower abdominal pain. He had some episodes of diarrhea and nausea vomiting. Never had pain like this in the past. When he presented to the emergency room had a white blood cell count 9700. CT scan abdomen pelvis was then performed showing a dilated Fernando structure in right lower quadrant consistent with acute appendicitis with possible perforation. No abscess in the pelvis seen. Patient has significant history of Parkinson's disease which was diagnosed in 2019. He has had a prior mitral valve replacement over 10 years ago. He has had a previous left inguinal hernia repair 20 years ago. He recently had a colonoscopy and removal of a colonic polyp in [place] a couple months ago and tolerated the anesthesia well. He has been admitted to the hospital started on IV antibiotics. He has been kept NPO. [facility] Past Medical History Medical History (Updated 06/04/24 @ 07:08 by Beatriz Leavitt DO) Anxiety Crohn disease In remission for several years Depression GERD (gastroesophageal reflux disease) History of CVA (cerebrovascular accident) Incidentally noted on MRI that was performed for Parkinson's with in the right parietal region History of endocarditis (~2010) HTN (hypertension), benign Iron deficiency anemia Resolved after iron infusions December 2023. Iron deficiency anemia thought to be due to gastric polyps and transverse colon tumor Parkinson disease (2019) PVCs (premature ventricular contractions) Tendinopathy of right rotator cuff Surgical History Surgical History (Updated 06/04/24 @ 02:36 by Beatriz Leavitt DO) H/O inguinal hernia repair (~1998) Left History of colonoscopy with polypectomy (03/2024) Patient had large colon mass of the transverse colon which was removed during colonoscopy in March pathology demonstrated benign findings History of esophagogastroduodenoscopy (EGD) (03/2024) Demonstrating multiple gastric polyps Status post mitral valve annuloplasty Patient developed mitral valve regurgitation after bacterial endocarditis and had mitral valve annuloplasty 2010 FR Family History Family History Grandparent Heart disease Social History Social History (Updated 06/04/24 @ 02:38 by Beatriz Leavitt DO) Social History: Patient lives with his of 13 years. They have 3 sons. 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 He rarely drinks alcohol. He is a lifelong nonsmoker and does not use any illicit substances. Code status: Full code Surrogate decision maker: Barbara () Smoking status: Never smoker Second hand tobacco smoke exposure: Yes Alcohol intake: current Alcohol use details: He rarely drinks alcohol about once every few months. 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 Gender identity (if verbalized by the patient): Male Spiritual care concerns: No Meds Home Medications and Allergies Home Medications Medication Instructions Recorded Confirmed Type cholecalciferol (vitamin D3) 125 5,000 unit PO DAILY 05/18/19 06/04/24 History mcg (5,000 unit) capsule carbidopa 25 mg-levodopa 100 mg 2 tablet PO TID #540 tabs 04/09/22 06/04/24 Rx tablet baclofen 10 mg tablet 10 mg PO BID 06/03/23 06/04/24 History bupropion HCl 100 mg tablet 100 mg PO DAILY 06/03/23 06/04/24 History omeprazole 40 mg capsule,delayed 40 mg PO DAILY #90 caps 02/20/24 06/04/24 Rx release atorvastatin 40 mg tablet 40 mg PO DAILY #30 tabs 03/09/24 06/04/24 Rx carvedilol 12.5 mg tablet 12.5 mg PO Q12H #60 tabs 05/24/24 06/04/24 Rx mirtazapine 15 mg tablet 15 mg PO HS 05/24/24 06/04/24 History carbidopa 25 mg tablet 25 mg PO TID 06/04/24 06/04/24 History carbidopa ER 50 mg-levodopa 200 mg 50 - 200 tablet PO HS 06/04/24 06/04/24 History tablet,extended release lisinopril 10 mg tablet 10 mg PO HS 06/04/24 06/04/24 History Allergies Allergy/AdvReac Type Severity Reaction Status Date / Time tramadol Allergy Unknown Jittery Verified 06/04/24 02:31 Vital Signs Vital Signs - 24 hr 06/03/24 21:18 06/03/24 21:54 06/03/24 22:00 Temperature 36.8 C Pulse Rate 106 H 103 H 104 H Respiratory Rate 24 H 26 H 26 H Blood Pressure 140/91 H Pulse Oximetry 96 97 94 Oxygen Delivery Room Air 06/03/24 22:24 06/03/24 22:25 06/03/24 22:30 Temperature Pulse Rate 97 98 94 Respiratory Rate 23 H 20 25 H Blood Pressure 130/82 Pulse Oximetry 98 97 98 Oxygen Delivery 06/03/24 22:31 06/04/24 01:33 06/04/24 02:25 Temperature Pulse Rate 95 98 98 Respiratory Rate 26 H 15 15 Blood Pressure 129/81 120/86 Pulse Oximetry 98 95 95 Oxygen Delivery Room Air 06/04/24 06:00 Temperature 36.6 C Pulse Rate 103 H Respiratory Rate 16 Blood Pressure 106/63 Pulse Oximetry 94 Oxygen Delivery Exam Const: General: comfortable and no acute distress HENMT: Ears: TM's normal bilaterally Face/Nose/Sinus: Normal nares present Mouth: Yes moist mucous membranes Neck: Neck: supple and no JVD Resp: Effort & Inspection: normal respiratory effort Auscultation: clear to auscultation bilaterally Cardio: Rate: regular rate Rhythm: regular rhythm GI: Other: Soft and nondistended. Moderate tenderness to palpation right lower quadrant the abdomen. Some involuntary guarding but no generalized peritoneal signs. No ventral hernias. No masses. Skin: General skin exam: normal color and no rashes or lesions noted Neuro: General: gait normal Speech: normal speech Extrem: General: normal to inspection Psych: Mental Status: mental status grossly normal Affect: normal affect Results Labs 06/03/24 21:27 06/03/24 21:27 Labs: Short CBC 06/03/24 Range/Units 21:27 WBC 9.7 (4.5-10.0) K/mm3 Hgb 14.5 D (14.0-18.0) g/dL Hct 42.8 (42.0-52.0) % Plt Count 294 (150-375) k/mm3 BMP 06/03/24 21:27 Sodium 140 Potassium 4.0 Chloride 103 Carbon Dioxide 29 BUN 15 Creatinine 0.80 Glucose 127 H Calcium 9.0 Liver Function 06/03/24 Range/Units 21:27 Total Bilirubin 2.3 H (0.2-1.3) mg/dL AST 26 (17-59) U/L ALT 11 (6-50) U/L Alkaline Phosphatase 99 (38-126) U/L Albumin 4.6 (3.5-5.1) g/dL Urine 06/03/24 Range/Units 21:27 Urine Color Yellow (Yellow) Urine Appearance Clear (Clear) Urine pH 6.0 (5.0-9.0) Ur Specific [place] > 1.045 H (1.001-1.035) Urine Protein Negative (Negative) mg/dL Urine Glucose (UA) Negative (Negative) mg/dL
--- NOTE | 2024-06-04 07:56 | WPDHPUPDATE1 ---
History and Physical Update Update Date/Time: 06/04/24 07:56 History and Physical has been reviewed, including an updated exam of the patient. There are NO changes in the patient's condition. Risks, benefits, and alternatives have been discussed and questions answered. Patient agrees to proceed with procedure.
--- NOTE | 2024-06-04 08:47 | WPDANESEPPF ---
Anes - Initial Pre Proc Eval Procedure: Operation Date: 06/04/24 09:00 Proposed Procedures p Laparoscopic Appendectomy - Jack Ventura MD Date/Time: 06/04/24 08:47 Surgeon: Beatriz Leavitt DO Pre Op Diagnosis: acute appendicitis Patient Data Age: 49 Gender: M Height: 1.7 m Weight: 80.5 kg Last Vital Signs Temp 36.6 C 06/04/24 06:00 Pulse 103 H 06/04/24 06:00 Resp 16 06/04/24 06:00 BP 106/63 06/04/24 06:00 Pulse Ox 94 06/04/24 06:00 O2 Del Method Room Air 06/04/24 02:25 Allergies Allergy/AdvReac Type Severity Reaction Status Date / Time tramadol Allergy Unknown Jittery Verified 06/04/24 02:31 Home Medications Medication Instructions Recorded Confirmed Type cholecalciferol (vitamin D3) 125 5,000 unit PO DAILY 05/18/19 06/04/24 History mcg (5,000 unit) capsule carbidopa 25 mg-levodopa 100 mg 2 tablet PO TID #540 tabs 04/09/22 06/04/24 Rx tablet baclofen 10 mg tablet 10 mg PO BID 06/03/23 06/04/24 History bupropion HCl 100 mg tablet 100 mg PO DAILY 06/03/23 06/04/24 History omeprazole 40 mg capsule,delayed 40 mg PO DAILY #90 caps 02/20/24 06/04/24 Rx release atorvastatin 40 mg tablet 40 mg PO DAILY #30 tabs 03/09/24 06/04/24 Rx carvedilol 12.5 mg tablet 12.5 mg PO Q12H #60 tabs 05/24/24 06/04/24 Rx mirtazapine 15 mg tablet 15 mg PO HS 05/24/24 06/04/24 History carbidopa 25 mg tablet 25 mg PO TID 06/04/24 06/04/24 History carbidopa ER 50 mg-levodopa 200 mg 50 - 200 tablet PO HS 06/04/24 06/04/24 History tablet,extended release lisinopril 10 mg tablet 10 mg PO HS 06/04/24 06/04/24 History Laboratory Tests 06/03/24 21:27 WBC 9.7 K/mm3 (4.5-10.0) RBC 4.88 M/mm3 (4.6-6.20) Hgb 14.5 D g/dL (14.0-18.0) Hct 42.8 % (42.0-52.0) MCV 87.7 fl (80-100) MCH 29.7 pg (26-34) MCHC 33.9 g/dl (32-36) RDW 12.8 % (11.5-14.5) Plt Count 294 k/mm3 (150-375) MPV 9.4 fl (7.4-10.4) Immature Gran % (Auto) 0.1 % (0-0.5) Neut % (Auto) 82.2 H % (45.5-73.1) Lymph % (Auto) 10.5 L % (18.3-44.2) [place] % (Auto) 5.9 % (2.6-8.5) Eos % (Auto) 0.9 % (0-4.4) Baso % (Auto) 0.4 % (0.2-1.2) Lymph # (Auto) 1.01 K/mm3 (0.9-3.2) [place] # (Auto) 0.6 K/mm3 (0.1-0.6) Eos # (Auto) 0.1 K/mm3 (0-0.3) Baso # (Auto) 0.0 K/mm3 (0.0-0.1) Abs Immat Gran (auto) 0.01 K/mm3 (0.00-0.031) Absolute Neuts (auto) 7.9 H K/mm3 (1.3-6.7) Absolute Nucleated RBC 0.000 K/mm3 (0.0-0.012) Nucleated RBC % 0.0 % (0.0-0.2) Sodium 140 mmol/L (137-145) Potassium 4.0 mmol/L (3.4-5.0) Chloride 103 mmol/L (98-107) Carbon Dioxide 29 mmol/L (22-30) Anion Gap 8 mmol/L (4-12) BUN 15 mg/dL (9-20) Creatinine 0.80 mg/dL (0.7-1.3) Estim Creat Clear Calc 92 ml/min Estimated GFR > 60 (59 - ) Glucose 127 H mg/dL (65-110) Calcium 9.0 mg/dL (8.4-10.2) Total Bilirubin 2.3 H mg/dL (0.2-1.3) AST 26 U/L (17-59) ALT 11 U/L (6-50) Alkaline Phosphatase 99 U/L (38-126) Total Protein 8.0 g/dL (6.3-8.2) Albumin 4.6 g/dL (3.5-5.1) Lipase 96 U/L (23-300) Urine Color Yellow (Yellow) Urine Appearance Clear (Clear) Urine pH 6.0 (5.0-9.0) Ur Specific [place] > 1.045 H (1.001-1.035) Urine Protein Negative mg/dL (Negative) Urine Glucose (UA) Negative mg/dL (Negative) Urine Ketones Negative mg/dL (Negative) Ur Blood (Man) Negative (Negative) Urine Nitrate Negative (Negative) Urine Bilirubin Negative (Negative) Urine Urobilinogen 0.2 mg/dL (<2.0) Leukocyte Esterase Rfl Negative DHIRAJ/UL (Negative) Patient hx anesthesia problems: none Family hx anesthesia problems: none Results Review: All pre-operative results and documents have been reviewed as part of the pre-operative evaluation. FOR[facility], LATER [facility] Past Medical History Medical History Anxiety Crohn disease In remission for several years Depression GERD (gastroesophageal reflux disease) History of CVA (cerebrovascular accident) Incidentally noted on MRI that was performed for Parkinson's with in the right parietal region History of endocarditis (~2010) HTN (hypertension), benign Iron deficiency anemia Resolved after iron infusions December 2023. Iron deficiency anemia thought to be due to gastric polyps and transverse colon tumor Parkinson disease (2019) PVCs (premature ventricular contractions) Tendinopathy of right rotator cuff Surgical History Surgical History H/O inguinal hernia repair (~1998) Left History of colonoscopy with polypectomy (03/2024) Patient had large colon mass of the transverse colon which was removed during colonoscopy in March pathology demonstrated benign findings History of esophagogastroduodenoscopy (EGD) (03/2024) Demonstrating multiple gastric polyps Status post mitral valve annuloplasty Patient developed mitral valve regurgitation after bacterial endocarditis and had mitral valve annuloplasty 2010 FR Family History Family History Grandparent Heart disease Social History Social History Social History: Patient lives with his of 13 years. They have 3 sons. 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 He rarely drinks alcohol. He is a lifelong nonsmoker and does not use any illicit substances. Code status: Full code Surrogate decision maker: Barbara () Smoking status: Never smoker Second hand tobacco smoke exposure: Yes Alcohol intake: current Alcohol use details: He rarely drinks alcohol about once every few months. 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 Informed Consent: The patient's anesthetic plan and its attendant risks and benefits were discussed with the patient/family/POA. Questions were solicited and answers provided to the satisfaction of the patient/family/POA.
[2024-06-04] MEDS: LIDO 1%/EPINEPHRINE 1:100,000 20 ML VIAL 30 ML INFILTRATE (09:43)
[2024-06-04] MEDS: BUPivacaine HCL 0.5% 10 ML AMP 30 ML INFILTRATE (09:44)
[2024-06-04] MEDS: LACTATED RINGERS 1,000 ML 30 ML IV CONT (10:27)
--- NOTE | 2024-06-04 10:36 | W.PM.PROC2 ---
Procedure Note - Detailed Date of Procedure 06/04/24 Pre-op Diagnosis Acute appendicitis Post-op Diagnosis Same Procedure Performed Laparoscopic appendectomy Surgeon Jack Ventura MD [employer] Professional Marciano BERGER Anesthesia General Indications Patient is a 49-year-old male presented with right lower quadrant abdominal pain. Normal white blood cell count but a CT scan abdomen pelvis showed an acute appendicitis. Patient presents now for emergent laparoscopic appendectomy. Findings Apparent was acutely inflamed with a purulent exudate around it. No obvious abscess. No perforation. No gangrene. Base of the appendix was viable minimally inflamed. Description of Procedure After informed consent was obtained patient brought to the operating room was placed supine position and general endotracheal anesthesia was administered. A Randall catheter was placed decompress the bladder an orogastric tube was placed decompress the stomach. The abdomen was then prepped and draped usual sterile fashion. Time-out was then performed correctly identifying the patient as well as procedure to be performed. She was already on scheduled IV antibiotics. I entered the abdomen left upper quadrant utilizing a 5mm Optiview port. Once inside the abdomen insufflated to adequate pneumoperitoneum of 15mm of mercury of CO2. I could then see the appendix in the right lower quadrant. It had a fibropurulent exudate along it but no abscess. The appendix appeared to be without perforation there was no feculent material in the pelvis. The base of the appendix appeared to be only min inflammation. Additional trocar ports to include a 12mm periumbilical trocar port as well as a 5mm suprapubic trocar port and a 5mm right lower quadrant trocar ports were then all placed under direct visualization. With laparoscopic instruments I then held the appendix up and identified the base. I further divided some of the lateral peritoneal attachments to the appendix with electrocautery. A [place] dissected was then used to make a defect through the mesoappendix just at the base. A 45mm Endo-GERARDO stapler was then used to divide the appendix flush with the cecum. The mesoappendix was then removed utilizing vascular reload to the Endo-GERARDO stapler. The appendix was then placed into an Endo-Catch bag and brought out through the periumbilical trocar port site. Then passed off table sent to pathology for examination. Both staple lines appeared to be hemostatic. I then irrigated out the right lower quadrant the abdomen the pelvis with [id number] of saline solution. Hemostasis was good. I then removed all the trocar ports under direct visualization all port sites appeared hemostatic. I then allowed the abdomen decompress. The port sites then irrigated sterile saline solution hemostasis was good. The 12mm periumbilical trocar port fascial defect was then closed utilizing 0 Vicryl suture placed in a figure-eight fashion at the fascial level. Skin edges in all the port sites were then approximated utilizing a running subcuticular 4 Monocryl suture. The incisions were then cleaned the skin glue sterile dressings were applied. The patient tolerated the procedure well no complications. All sponges, needles, and instrument counts were correct at the end procedure. EBL was _20__cc. The patient was awakened and taken to recovery in stable and satisfactory condition. Implants None Estimated Blood Loss 20 Drains No Packing No Pathology Yes (Appendix to pathology) Complications No immediate complications Condition Stable Disposition PACU [facility] Billing Surgery - Charge Forward: Surgery Billing
--- NOTE | 2024-06-04 11:24 | PC.NURSE ---
Returned from PACU per bed. Report received from PANTERA Becerra. Trochar sites dry and intact. Pt reports minimal pain and will call for pain medication if he needs it.
--- NOTE | 2024-06-04 12:48 | PM.IMPN ---
Progress Note: A&P Assessment and Plan (1) Acute appendicitis: Qualifiers: Acute appendicitis type: with localized peritonitis Appendicitis abscess presence: unspecified whether abscess present Appendicitis gangrene presence: without gangrene Appendicitis perforation presence: with perforation Qualified Code(s): K35.32 - Acute appendicitis with perforation, localized peritonitis, and gangrene, without abscess Code(s): K35.80 - Unspecified acute appendicitis Status: Acute Assessment and Plan: - s/p emergent laparoscopic appendectomy. - +ve bowel sounds with no abdominal distress. - Currently on clears diet and we'll advance as tolerated per general surgery. - Pain and nausea meds PRN. - IV abx per general surgery. - Encouraged with activity and IS use. (2) Chronic GERD: Code(s): K21.9 - Gastro-esophageal reflux disease without esophagitis Status: Acute Assessment and Plan: - Continue protonix. (3) Crohn's disease without complication: Qualifiers: Gastrointestinal tract location: unspecified location Qualified Code(s): K50.90 - Crohn's disease, unspecified, without complications Code(s): K50.90 - Crohn's disease, unspecified, without complications Status: Acute Assessment and Plan: - Stable. - (4) Parkinson disease: Onset Date: 2019 Qualifiers: Dyskinesia presence: with dyskinesia Fluctuating manifestations: unspecified whether manifestations fluctuate Qualified Code(s): G20.B1 - Parkinson's disease with dyskinesia, without mention of fluctuations Code(s): G20 - Parkinson's disease Status: Acute Assessment and Plan: - Continue Sinemet. (5) HTN (hypertension), benign: Code(s): I10 - Essential (primary) hypertension Status: Acute Assessment and Plan: - BP well controlled. - Monitor for now. (6) Depression: Code(s): F32.A - Depression, unspecified Status: Acute Assessment and Plan: - Continue mirtazapine. Plan Advance diet as tolerated. Possible d/c tomorrow. Time Spent With Patient Time with patient: 15 - 25 minutes Subjective Date/time seen: 06/04/24 12:48 Patient states he feels alright and has no pain or other distressful symptoms currently. Interval history: Patient calm on bedrest post-op. Does not appear to be in any acute distress. Review of Systems Review of Systems: All systems reviewed & are unremarkable except as noted in HPI and below Exam Narrative: General: Appears comfortable and in no acute distress. HEENT: Atraumatic, PERRL, EOOM, moist mucosa, anicteric. NECK: Supple. Lungs: Clear bilaterally. Heart: RRR, no murmurs. Abdomen: Soft, non-tender, non-distended, surgical incisions with intact dermaband, +ve bowel sounds X4 quadrants. Extremities: No edema, 2+ radial and pedal pulses. Skin: Warm and dry. Abdominal surgical incisions with intact dermaband. Neuro: Well oriented. CN II-XII grossly intact. Psych: Pleasant and co-operative. Objective Data Vital Signs Vital Signs: Vital Signs - 24 hr 06/03/24 21:18 06/03/24 21:54 06/03/24 22:00 Temperature 98.2 F Pulse Rate 106 H 103 H 104 H Respiratory Rate 24 H 26 H 26 H Blood Pressure 140/91 H Pulse Oximetry 96 97 94 Oxygen Delivery Room Air Oxygen Flow Rate 06/03/24 22:24 06/03/24 22:25 06/03/24 22:30 Temperature Pulse Rate 97 98 94 Respiratory Rate 23 H 20 25 H Blood Pressure 130/82 Pulse Oximetry 98 97 98 Oxygen Delivery Oxygen Flow Rate 06/03/24 22:31 06/04/24 01:33 06/04/24 02:25 Temperature Pulse Rate 95 98 98 Respiratory Rate 26 H 15 15 Blood Pressure 129/81 120/86 Pulse Oximetry 98 95 95 Oxygen Delivery Room Air Oxygen Flow Rate 06/04/24 06:00 06/04/24 10:27 06/04/24 10:30 Temperature 97.8 F 97.4 F L Pulse Rate 103 H 86 87 Respiratory Rate 16 12 14 Blood Pressure 106/63 131/80 120/76 Pulse Oximetry 94 100 100 Oxygen Delivery Simple Face Mask Simple Face Mask Oxygen Flow Rate 10 10 06/04/24 10:40 06/04/24 10:45 06/04/24 11:00 Temperature Pulse Rate 89 90 88 Respiratory Rate 13 20 12 Blood Pressure 127/79 119/61 130/67 Pulse Oximetry 100 100 100 Oxygen Delivery Room Air Nasal Cannula Nasal Cannula Oxygen Flow Rate 2 2 06/04/24 11:20 06/04/24 11:42 Temperature 97.6 F 97.6 F Pulse Rate 86 90 Respiratory Rate 12 12 Blood Pressure 125/71 126/72 Pulse Oximetry 95 95 Oxygen Delivery Oxygen Flow Rate Intake/Output Intake/Output: Intake & Output 06/01/24 06/02/24 06/03/24 06/04/24 23:59 23:59 23:59 23:59 Intake Total 1000 869.2 Balance 1000 869.2 Meds/Results Medications: Active Medications Generic Name Dose Route Start Last Admin Trade Name Freq PRN Reason Stop Dose Admin Acetaminophen 1,000 mg 06/04/24 11:25 Acetaminophen 500 Mg Tablet PO Q6H PRN Mild Pain (1-3) or Fever Hydrocodone Bitart/Acetaminophen 1 tab 06/04/24 11:25 Hydrocodone/Acetaminophen (*Crx) 5-325 Mg Tablet PO Q4H PRN Pain Rated 4-6 Atorvastatin Calcium 40 mg 06/05/24 09:00 Atorvastatin 40 Mg Tablet PO DAILY ROHIT Baclofen 10 mg 06/04/24 12:00 Baclofen 10 Mg Tablet PO 1200,2100 ROHIT Bupropion HCl 100 mg 06/05/24 09:00 Bupropion Hcl 100 Mg Tablet PO DAILY ROHIT Carbidopa 25 mg 06/04/24 16:30 Carbidopa 25 Mg Tablet PO 0830,1130,1630 ROHIT Carbidopa/Levodopa 2 tablet 06/04/24 21:00 Carbidopa/Levodopa 25/100 Mg Cr Tablet PO HS ORHIT Carbidopa/Levodopa 3 tablet 06/04/24 12:20 Carbidopa/Levodopa 25/100 Mg Tablet PO 0900,1200 ROHIT Carbidopa/Levodopa 2 tablet 06/04/24 17:00 Carbidopa/Levodopa 25/100 Mg Tablet PO 1700 ROHIT Carvedilol 12.5 mg 06/04/24 11:45 Carvedilol 12.5 Mg Tablet PO Q12HR ROHIT Enoxaparin Sodium 40 mg 06/05/24 09:00 Enoxaparin 40 Mg/0.4 Ml Syringe SUB-Q DAILY ROHIT Piperacillin/Tazobactam/Dextrose 3.375 gm in 50 mls @ 100 mls/hr 06/04/24 06:00 06/04/24 06:05 Zosyn 3.375 Gm/Ns 50 Ml IVPB Infused Q6H [facility] Infusion Sodium Chloride 1,000 mls @ 125 mls/hr 06/04/24 01:30 06/04/24 12:15 Normal Saline Iv IV CONT Not Given .Q8H [facility] Lisinopril 10 mg 06/04/24 21:00 Lisinopril 10 Mg Tablet PO HS [facility] Mirtazapine 15 mg 06/04/24 21:00 Mirtazapine 15 Mg Tablet PO HS [facility] Miscellaneous Information 0 each 06/04/24 00:01 Bupropion - External Med Hx Shows 150 Mg Am And 150 Mg At Lunch - Clarify XX 07/04/24 00:00 CLARIFY [facility] Miscellaneous Information 0 each 06/04/24 00:01 Carbidopa - Dose Needs Clarified - External Hx Shows 75 Mg Am 30 Minutes Before Sinemet An XX 07/04/24 00:00 CLARIFY [facility] Ondansetron HCl 4 mg 06/04/24 01:30 Ondansetron Inj 4 Mg/2 Ml Vial IV PUSH Q4H PRN Nausea Oxycodone HCl 5 mg 06/04/24 11:25 Oxycodone Hcl (*Crx) 5 Mg Tab Ir PO Q4H PRN Pain Rated 7-10 Pantoprazole Sodium 40 mg 06/05/24 09:00 Pantoprazole 40 Mg Tablet PO QAM [facility] Vitamin D 5,000 units 06/04/24 11:45 Cholecalciferol 5,000 Units Tablet PO DAILY [facility] Radiology Results: ITS Impressions Abdomen/Pelvis CT 06/04/24 08:47 IMPRESSION: Probably enlarged appendix measuring up to 2.5 cm diameter, with evidence of perforation; appendiceal mucocele should be considered Probable associated mild adynamic ileus, with small bowel air-fluid levels Small sliding hiatal hernia Bilateral fat-containing inguinal hernias, right greater than left Fat-containing umbilical hernia. Labs Labs: Laboratory Results - last 24 hr 06/03/24 21:27 WBC 9.7 RBC 4.88 Hgb 14.5 D Hct 42.8 MCV 87.7 MCH 29.7 MCHC 33.9 RDW 12.8 Plt Count 294 MPV 9.4 Immature Gran % (Auto) 0.1 Neut % (Auto) 82.2 H Lymph % (Auto) 10.5 L [place] % (Auto) 5.9 Eos % (Auto) 0.9 Baso % (Auto) 0.4 Lymph # (Auto) 1.01 [place] # (Auto) 0.6 Eos # (Auto) 0.1 Baso # (Auto) 0.0 Abs Immat Gran (auto) 0.01 Absolute Neuts (auto) 7.9 H Absolute Nucleated RBC 0.000 Nucleated RBC % 0.0 Sodium 140 Potassium 4.0 Chloride 103 Carbon Dioxide 29 Anion Gap 8 BUN 15 Creatinine 0.80 Estim Creat Clear Calc 92 Estimated GFR > 60 Glucose 127 H Calcium 9.0 Total Bilirubin 2.3 H AST 26 ALT 11 Alkaline Phosphatase 99 Total Protein 8.0 Albumin 4.6 Lipase 96 Urine Color Yellow Urine Appearance Clear Urine pH 6.0 Ur Specific [place] > 1.045 H Urine Protein Negative Urine Glucose (UA) Negative Urine Ketones Negative Ur Blood (Man) Negative Urine Nitrate Negative Urine Bilirubin Negative Urine Urobilinogen 0.2 Leukocyte Esterase Rfl Negative Quality VTE Prophylaxis VTE prophylaxis: mechanical ordered (SCDs) and pharmacologic ordered Hospitalist MIPS Advance Care Plan I have confirmed that the patient's Advanced Care Plan is present, code status is documented, or surrogate decision maker is listed in patient medical record.: Yes Medication Reconciliation I have utilized all available resources to obtain, update and review the patients current medications (includes all prescriptions, OTC, herbals, cannabis, and nutritional supplements).: Yes
[2024-06-04] MEDS: carvediloL 12.5 MG TABLET PO ×2 (12:55→20:35)
[2024-06-04] MEDS: CHOLECALCIFEROL 5,000 UNITS TABLET 5000 UNITS PO (12:55)
[2024-06-04] MEDS: BACLOFEN 10 MG TABLET PO ×2 (12:57→20:35)
[2024-06-04] MEDS: ONDANSETRON INJ 4 MG/2 ML VIAL IV PUSH (13:12)
[2024-06-04] MEDS: buPROPion HCL XL (24 HR) 150 MG TABCR PO (17:31)
[2024-06-04] MEDS: CARBIDOPA 25 MG TABLET 50 MG PO (17:33)
[2024-06-04] MEDS: CARBIDOPA/LEVODOPA 25/100 MG TABLET 2 TABLET PO (18:00)
[2024-06-04] MEDS: HYDROcodone/acetaminophen (*CRX) 5-325 MG TABLET 1 TAB PO (20:35)
[2024-06-04] MEDS: lisinopriL 10 MG TABLET PO (20:36)
[2024-06-04] MEDS: MIRTAZAPINE 15 MG TABLET PO (20:36)
[2024-06-05] MEDS: PIPERACILLN/TAZ 3.375GM/NS50ML 3.375 GM/50 ML BAG IVPB ×3 (00:01→13:01)
[2024-06-05] MEDS: SODIUM CHLORIDE 0.9% IV 1,000 ML 125 ML IV CONT (02:28)
[2024-06-05 06:03] LABS: Basophils Percent Auto 0.1 % (0.2-1.2); Hematocrit 35.8 % (42.0-52.0); Hemoglobin 11.8 g/dL (14.0-18.0); Immature Granulocyte Absolute 0.09 K/mm3 (0.00-0.031); Immature Granulocyte Percent A 0.7 % (0-0.5); Lymphocytes Absolute Auto 0.76 K/mm3 (0.9-3.2); Lymphocytes Percent Auto 6.1 % (18.3-44.2); Mean Corpuscular Hemoglobin 29.7 pg (26-34); Mean Corpuscular Volume 90.2 fl (80-100); Mean Platelet Volume 9.8 fl (7.4-10.4); Monocytes Absolute Auto 0.6 K/mm3 (0.1-0.6); Monocytes Percent Auto 4.7 % (2.6-8.5); Neutrophils Absolute Auto 11.1 K/mm3 (1.3-6.7); Neutrophils Percent Auto 88.4 % (45.5-73.1); Platelet Count Result 238 k/mm3 (150-375); Red Blood Count 3.97 M/mm3 (4.6-6.20); Red Cell Distribution Width 12.7 % (11.5-14.5); White Blood Count 12.5 K/mm3 (4.5-10.0)
[2024-06-05 06:27] VITALS: BP 124/73; PULSE 63; RESP 20; TEMP 36.1; O2SAT 98
--- NOTE | 2024-06-05 07:19 | P.PNAN_ITS ---
Anes - Prog Note Post-Op Date/Time: 06/05/24 07:19 Cardiovascular status: normal Respiratory status: normal Airway patency: baseline Mental status: baseline Post-Op hydration status: normal Vital Signs: Last Vital Signs Temp 36.7 C 06/04/24 22:27 Pulse 85 06/04/24 22:27 Resp 18 06/04/24 22:27 BP 127/71 06/04/24 22:27 Pulse Ox 96 06/04/24 22:27 O2 Del Method Room Air 06/04/24 20:30 O2 Flow Rate 2 06/04/24 11:00 Pain Score (VAS): 09/13 I/O: Intake & Output 06/04/24 06/04/24 06/05/24 15:59 23:59 07:59 Intake Total 260 610.8 1050 Balance 260 610.8 1050 Laboratory Tests 06/05/24 05:22 06/03/24 21:27 06/05/24 05:22 WBC 12.5 H RBC 3.97 L Hgb 11.8 L Hct 35.8 L MCV 90.2 MCH 29.7 MCHC 33.0 RDW 12.7 Plt Count 238 MPV 9.8 Immature Gran % (Auto) 0.7 H Neut % (Auto) 88.4 H Lymph % (Auto) 6.1 L [place] % (Auto) 4.7 Eos % (Auto) 0.0 Baso % (Auto) 0.1 L Lymph # (Auto) 0.76 L [place] # (Auto) 0.6 Eos # (Auto) 0.0 Baso # (Auto) 0.0 Abs Immat Gran (auto) 0.09 H Absolute Neuts (auto) 11.1 H Absolute Nucleated RBC 0.000 Nucleated RBC % 0.0 Post-procedural complaints: none Patient Feedback: Patient satisfied with anesthetic care.
[2024-06-05 08:11] VITALS: PULSE 78
[2024-06-05] MEDS: PANTOPRAZOLE 40 MG TABLET PO (08:11)
[2024-06-05] MEDS: carvediloL 12.5 MG TABLET PO (08:11)
[2024-06-05] MEDS: buPROPion HCL XL (24 HR) 150 MG TABCR PO (08:11)
[2024-06-05] MEDS: ATORVASTATIN 40 MG TABLET PO (08:11)
[2024-06-05] MEDS: CHOLECALCIFEROL 5,000 UNITS TABLET 5000 UNITS PO (08:11)
[2024-06-05] MEDS: ENOXAPARIN 40 MG/0.4 ML SYRINGE SUB-Q (08:12)
[2024-06-05] MEDS: CARBIDOPA 25 MG TABLET 50 MG PO ×2 (08:16→12:59)
[2024-06-05] MEDS: CARBIDOPA/LEVODOPA 25/100 MG TABLET 3 TABLET PO ×2 (08:45→13:01)
--- NOTE | 2024-06-05 11:55 | WPDPN ---
Progress Note: A&P Assessment and Plan (1) Acute appendicitis: Qualifiers: Acute appendicitis type: with localized peritonitis Appendicitis abscess presence: unspecified whether abscess present Appendicitis gangrene presence: without gangrene Appendicitis perforation presence: with perforation Qualified Code(s): K35.32 - Acute appendicitis with perforation, localized peritonitis, and gangrene, without abscess Code(s): K35.80 - Unspecified acute appendicitis Status: Acute Assessment and Plan: Patient is postop day 1 after laparoscopic appendectomy for acute suppurative appendicitis. No abscess was seen but there was quite a bit of fibropurulent exudate around the appendix. He no longer needs IV antibiotics but I would send him home with a course of oral antibiotics for the next 7 days. He never good at home. Discharge instructions are written. He does not want a pain script at discharge. He states he will use Tylenol ibuprofen at home. Subjective Date/time seen: 06/05/24 11:55 Interval history: Clinically the patient is doing well. He feels much better and has minimal right lower quadrant pain. Tolerating solid diet. [place]. [place] [address] [place]. Which is little increased from yesterday. Has only taken 1 pain pill after surgery. Exam GI: Other: The abdomen is soft and nondistended. Port site incisions have a ecchymosis around the incisions but there is no redness or drainage no hematoma. Abdomen is relatively benign. Objective Data Vital Signs Vital Signs: Vital Signs - 24 hr 06/04/24 12:55 06/04/24 11:57 06/04/24 14:19 Temperature 36.9 C 36.4 C L Pulse Rate 80 78 87 Respiratory Rate 12 16 Blood Pressure 113/71 122/84 Pulse Oximetry 95 96 Oxygen Delivery 06/04/24 20:35 06/04/24 20:30 06/04/24 22:27 Temperature 36.7 C Pulse Rate 69 69 85 Respiratory Rate 16 18 Blood Pressure 127/71 Pulse Oximetry 96 96 Oxygen Delivery Room Air 06/05/24 06:27 06/05/24 08:11 06/05/24 08:00 Temperature 36.1 C L Pulse Rate 63 78 Respiratory Rate 20 Blood Pressure 124/73 Pulse Oximetry 98 Oxygen Delivery Room Air Intake/Output Intake/Output: Intake & Output 06/02/24 06/03/24 06/04/24 06/05/24 23:59 23:59 23:59 23:59 Intake Total 1000 1650.0 1740 Balance 1000 1650.0 1740 Meds/Results Medications: Active Medications Generic Name Dose Route Start Last Admin Trade Name Freq PRN Reason Stop Dose Admin Acetaminophen 1,000 mg 06/04/24 11:25 Acetaminophen 500 Mg Tablet PO Q6H PRN Mild Pain (1-3) or Fever Hydrocodone Bitart/Acetaminophen 1 tab 06/04/24 11:25 06/04/24 20:35 Hydrocodone/Acetaminophen (*Crx) 5-325 Mg Tablet PO 1 tab Q4H PRN Administration Pain Rated 4-6 Atorvastatin Calcium 40 mg 06/05/24 09:00 06/05/24 08:11 Atorvastatin 40 Mg Tablet PO 40 mg DAILY ROHIT Administration Baclofen 10 mg 06/04/24 12:00 06/04/24 20:35 Baclofen 10 Mg Tablet PO 10 mg 1200,2100 ROHIT Administration Bupropion HCl 150 mg 06/04/24 14:00 06/05/24 08:11 Bupropion Hcl Xl (24 Hr) 150 Mg Tabcr PO 150 mg QAM ROHIT Administration Carbidopa 50 mg 06/04/24 16:30 06/05/24 08:16 Carbidopa 25 Mg Tablet PO 50 mg 0830,1130,1630 ROHIT Administration Carbidopa/Levodopa 2 tablet 06/04/24 21:00 06/04/24 20:36 Carbidopa/Levodopa 25/100 Mg Cr Tablet PO Not Given HS ROHIT Carbidopa/Levodopa 3 tablet 06/04/24 12:20 06/05/24 08:45 Carbidopa/Levodopa 25/100 Mg Tablet PO 3 tablet 0900,1200 ROHIT Administration Carbidopa/Levodopa 2 tablet 06/04/24 17:00 06/04/24 18:00 Carbidopa/Levodopa 25/100 Mg Tablet PO 2 tablet 1700 ROHIT Administration Carvedilol 12.5 mg 06/04/24 11:45 06/05/24 08:11 Carvedilol 12.5 Mg Tablet PO 12.5 mg Q12HR ROHIT Administration Enoxaparin Sodium 40 mg 06/05/24 09:00 06/05/24 08:12 Enoxaparin 40 Mg/0.4 Ml Syringe SUB-Q 40 mg DAILY ROHIT Administration Piperacillin/Tazobactam/Dextrose 3.375 gm in 50 mls @ 100 mls/hr 06/04/24 06:00 06/05/24 06:23 Zosyn 3.375 Gm/Ns 50 Ml IVPB Infused Q6H ROHIT Infusion Sodium Chloride 1,000 mls @ 125 mls/hr 06/04/24 01:30 06/05/24 10:26 Normal Saline Iv IV CONT Not Given .Q8H ROHIT Lisinopril 10 mg 06/04/24 21:00 06/04/24 20:36 Lisinopril 10 Mg Tablet PO 10 mg HS ROHIT Administration Mirtazapine 15 mg 06/04/24 21:00 06/04/24 20:36 Mirtazapine 15 Mg Tablet PO 15 mg HS ROHIT Administration Ondansetron HCl 4 mg 06/04/24 01:30 06/04/24 13:12 Ondansetron Inj 4 Mg/2 Ml Vial IV PUSH 4 mg Q4H PRN Administration Nausea Oxycodone HCl 5 mg 06/04/24 11:25 Oxycodone Hcl (*Crx) 5 Mg Tab Ir PO Q4H PRN Pain Rated 7-10 Pantoprazole Sodium 40 mg 06/05/24 09:00 06/05/24 08:11 Pantoprazole 40 Mg Tablet PO 40 mg QAM ROHIT Administration Vitamin D 5,000 units 06/04/24 11:45 06/05/24 08:11 Cholecalciferol 5,000 Units Tablet PO 5,000 units DAILY ROHIT Administration Radiology Results: ITS Impressions Abdomen/Pelvis CT 06/04/24 08:47 IMPRESSION: Probably enlarged appendix measuring up to 2.5 cm diameter, with evidence of perforation; appendiceal mucocele should be considered Probable associated mild adynamic ileus, with small bowel air-fluid levels Small sliding hiatal hernia Bilateral fat-containing inguinal hernias, right greater than left Fat-containing umbilical hernia. Labs Labs: Laboratory Results - last 24 hr 06/05/24 05:22 WBC 12.5 H RBC 3.97 L Hgb 11.8 L Hct 35.8 L MCV 90.2 MCH 29.7 MCHC 33.0 RDW 12.7 Plt Count 238 MPV 9.8 Immature Gran % (Auto) 0.7 H Neut % (Auto) 88.4 H Lymph % (Auto) 6.1 L [place] % (Auto) 4.7 Eos % (Auto) 0.0 Baso % (Auto) 0.1 L Lymph # (Auto) 0.76 L [place] # (Auto) 0.6 Eos # (Auto) 0.0 Baso # (Auto) 0.0 Abs Immat Gran (auto) 0.09 H Absolute Neuts (auto) 11.1 H Absolute Nucleated RBC 0.000 Nucleated RBC % 0.0
--- NOTE | 2024-06-05 12:19 | P.DS_ITS ---
DS: Admitting Diagnosis Discharge Date 06/05/24 Admitting Diagnosis Abdominal Pain. DS: Discharge Diagnosis Discharge Diagnosis (1) Acute appendicitis: Qualifiers: Acute appendicitis type: with localized peritonitis Appendicitis abscess presence: unspecified whether abscess present Appendicitis gangrene presence: without gangrene Appendicitis perforation presence: with perforation Qualified Code(s): K35.32 - Acute appendicitis with perforation, localized peritonitis, and gangrene, without abscess Code(s): K35.80 - Unspecified acute appendicitis Status: Acute Assessment and Plan: - s/p emergent laparoscopic appendectomy. - No abscess was seen but there was quite a bit of fibropurulent exudate around the appendix per gen surgery. - Discharged on Augmentin for 7 days treatment. - +ve bowel sounds with no abdominal distress prior to discharge. - Tolerated regular diet well and cleared for discharge per general surgery. - Declined pain meds. - Encouraged with activity and IS use. (2) Chronic GERD: Code(s): K21.9 - Gastro-esophageal reflux disease without esophagitis Status: Acute Assessment and Plan: - Treated with protonix. (3) Crohn's disease without complication: Qualifiers: Gastrointestinal tract location: unspecified location Qualified Code(s): K50.90 - Crohn's disease, unspecified, without complications Code(s): K50.90 - Crohn's disease, unspecified, without complications Status: Acute Assessment and Plan: - Stable. - Resume home treatment. (4) Parkinson disease: Onset Date: 2019 Qualifiers: Dyskinesia presence: with dyskinesia Fluctuating manifestations: unspecified whether manifestations fluctuate Qualified Code(s): G20.B1 - Parkinson's disease with dyskinesia, without mention of fluctuations Code(s): G20 - Parkinson's disease Status: Acute Assessment and Plan: - Continue Sinemet. (5) HTN (hypertension), benign: Code(s): I10 - Essential (primary) hypertension Status: Acute Assessment and Plan: - BP well controlled inpatient without medications. (6) Depression: Code(s): F32.A - Depression, unspecified Status: Acute Assessment and Plan: - Continued on mirtazapine. Plan Discharge Home. DS: Summary Hospital Course Reason for hospitalization: Abdominal Pain. Hospital Course: Patient presented to the ER with lower abdominal pain. CT of the abdomen and pelvis demonstrated acute appendicitis with possible early perforation. No obvious abscess or pneumoperitoneum. Patient was afebrile on presentation to the ER. He was initially tachycardic but this improved after he received 1 L fluid bolus. Patient was started on empiric antibiotic therapy with Zosyn. General surgery was consulted from the ER and Lap appendectomy recommended. Patient had a successful Lap appendectomy with no complications. He has been able to tolerate regular diet and denies any GI distress. Patient with No abscess seen during surgery but there was quite a bit of fibropurulent exudate around the appendix per gen surgery, so he will be discharged on Augmentin, 7 days treatment. Patient has declined pain meds and states will use Tylenol or Ibuprofen at home if needed. He has been cleared for discharge per general surgery, with no acute distress noted or reported prior to discharge. Status at Discharge Functional status at discharge: independent ambulation Overall status at discharge: patient is progressing back to baseline Time Spent with Patient Time attestation: Total time spent providing and/or coordinating discharge services: Time spent: Greater than 30 minutes Exam Narrative: General: Appears comfortable and in no acute distress. HEENT: Atraumatic, PERRL, EOOM, moist mucosa, anicteric. NECK: Supple. Lungs: Clear bilaterally. Heart: RRR, no murmurs. Abdomen: Soft, non-tender, non-distended, surgical incisions with intact dermaband, +ve bowel sounds X4 quadrants. Extremities: No edema, 2+ radial and pedal pulses. Skin: Warm and dry. Abdominal surgical incisions with intact dermaband. Neuro: Well oriented. CN II-XII grossly intact. Psych: Pleasant and co-operative. DS: Data Data Completed and Pending Pending studies at discharge: Pending at discharge 06/04/24 09:42 Surgical [PTH] Routine Labs on day of discharge: Labs from last 24 hours 06/05/24 05:22 WBC 12.5 H RBC 3.97 L Hgb 11.8 L Hct 35.8 L MCV 90.2 MCH 29.7 MCHC 33.0 RDW 12.7 Plt Count 238 MPV 9.8 Immature Gran % (Auto) 0.7 H Neut % (Auto) 88.4 H Lymph % (Auto) 6.1 L [place] % (Auto) 4.7 Eos % (Auto) 0.0 Baso % (Auto) 0.1 L Lymph # (Auto) 0.76 L [place] # (Auto) 0.6 Eos # (Auto) 0.0 Baso # (Auto) 0.0 Abs Immat Gran (auto) 0.09 H Absolute Neuts (auto) 11.1 H Absolute Nucleated RBC 0.000 Nucleated RBC % 0.0 Discharge Plan Discharge Attending physician on discharge: Zev Romero Consulting providers: Jack Ventura Discharging Clinician: Ivelisse Kim Anticipated Discharge Date/Time: 06/05/24 12:40 Patient Disposition: Home, Self-Care Activity: may shower Diet: regular Wound Care Instructions: other - see discharge instructions Discharge Instructions: May discharge home when stable. Follow up with Dr. Ventura in the office in 2 weeks. Patient to call [phone] for an appointment. May shower in 24hours but do not soak incisions under water for 2 weeks. No lifting more than 10 to 15 lb for 2 weeks. May advance diet as tolerated. No driving for at least 3 days or until no longer taking any narcotic pain medication. Resume all home medications. May use Tylenol and/or ibuprofen in addition to or in place of narcotic pain medications for postoperative pain. Patient Instructions: Antibiotic Form Stand Alone Forms: General Discharge Information Follow-up/Referrals: Jack Ventura MD [Physician] - Discharge Medications: New amoxicillin-pot clavulanate 875-125 mg tablet 1 tablet PO Q12H Qty: 14 0RF Continued baclofen 10 mg tablet 10 mg PO BID mirtazapine 15 mg tablet 15 mg PO HS carvedilol 12.5 mg tablet 12.5 mg PO Q12H Qty: 60 5RF cholecalciferol (vitamin D3) 5,000 unit capsule 5,000 unit PO DAILY carbidopa-levodopa 50-200 mg tablet extended release 1 tablet PO HS carbidopa 25 mg tablet 50 mg PO TID Rx Instructions: take 30-60 min before carbidopa/levodopa lisinopril 10 mg tablet 10 mg PO HS Rx Instructions: Take 1 tablet by mouth once daily carbidopa-levodopa 25-100 mg tablet See Rx Instructions .ROUTE .COMPLEX Rx Instructions: Take 3 tablets QAM and noon and 2 tablets QPM bupropion HCl 150 mg tablet extended release 24 hr 150 mg PO DAILY omeprazole 40 mg capsule,delayed release(DR/EC) 40 mg PO DAILY Qty: 90 1RF atorvastatin 40 mg tablet 40 mg PO DAILY Qty: 30 5RF Date of admission: 06/04/24 01:30 Primary Care Provider: Ronnie Rapp Admitting Provider: Beatriz Leavitt Attending physician on admission: Beatriz Leavitt Condition: Stable Quality If No VTE Prophylaxis Answer both mechanical and pharmacologic: Reason no mechanical VTE proph: low risk/not indicated Reason no pharmacologic proph: low risk/not indicated Hospitalist MIPS Heart Failure (Exclusion) Patient has history of Heart Transplant or Left Ventricular Assistive Device?: No IF YES, STOP HERE Heart Failure (Qualifier) Patient has current or prior documentation of LVEF less than or equal to 40%, or mod/servere depressed LVSF?: No IF NO, STOP HERE
[2024-06-05] MEDS: BACLOFEN 10 MG TABLET PO (13:01)
== END 2024-06-05 13:51 | disposition home or self-care (01) ==
LOC: ANHED 06-04 01:42 → ANH3MED 06-05 12:41
PROVIDERS: Surgery; Admitting Provider Internal Medicine; Emergency Provider Physician Assistant; PCP Family Medicine; Visit Provider Internal Medicine
PROC: 0DTJ4ZZ Resection of Appendix, Percutaneous Endoscopic Approach (ICD-10-PCS; CPT 44970; principal; 2024-06-04 09:00)
DX: K35.32 Acute appendicitis with perforation, localized peritonitis, and gangrene, without abscess (principal); K21.9 Gastro-esophageal reflux disease without esophagitis; K50.90 Crohn's disease, unspecified, without complications; I10 Essential (primary) hypertension; G20.B1 Parkinson's disease with dyskinesia, without mention of fluctuations; E78.5 Hyperlipidemia, unspecified; F32.A Depression, unspecified; F41.9 Anxiety disorder, unspecified; Z79.899 Other long term (current) drug therapy; Z86.73 Personal history of transient ischemic attack (TIA), and cerebral infarction without residual deficits
CPT/HCPCS: 44970; 36415; 74177; 80053; 81003; 83690; 85025; 88304; 96361; 96365; 96375; 99285; A9270; J0330; J1100; J1171; J1650; J2003; J2004; J2250; J2270; J2371; J2405; J2543; J2704; J3010; J7030; J7120; Q9967